=== PATIENT | male | born 1960 | race Caucasian/White ===

== ENCOUNTER 2021-11-23 09:30 | Outpatient (CLI) | payer OTHER ==
[2021-11-23] MEDS ORDERED: Magnevist 469MG/ML 20 ML VIAL ONE (14:05)
== END 2021-11-23 09:31 | disposition home or self-care (01) ==
LOC: CSHMRI 09:30
PROVIDERS: ATTEND Urology
DX: R97.20 Elevated prostate specific antigen [PSA] (principal); N42.9 Disorder of prostate, unspecified
CPT/HCPCS: 72197; A9579

== ENCOUNTER 2024-12-13 09:12 | Outpatient (CLI) | payer MEDICARE, OTHER | END 2024-12-13 09:13 | disposition home or self-care (01) | LOC: CSHULT 09:12 | PROVIDERS: ATTEND Family Medicine | DX: Z13.6 Encounter for screening for cardiovascular disorders (principal) | CPT/HCPCS: 76706 ==